=== PATIENT | male | born 1950 | race Two or more races ===

== ENCOUNTER 2017-04-29 02:14 | Emergency (ER) | payer BC, OTHER ==
[2017-04-29 02:21] VITALS: BP 125/83
--- NOTE | 2017-04-29 02:42 | EDM.PDOC ---
ED HPI GENERAL MEDICAL PROBLEM - General Chief Complaint: General Stated Complaint: Right knee pain Time Seen by Provider: 04/29/17 02:35 Source of Information: Reports: Patient, Old Records ([facility] EMR. No paper hospital chart available.) History Limitations: Reports: No Limitations - History of Present Illness INITIAL COMMENTS - FREE TEXT/NARRATIVE: The patient drove himself to the emergency room via private automobile for evaluation of refractory and persistent chronic right knee pain after initial Workmen's Compensation injury on 03/07/17. He was apparently evaluated initially by his regular provider, Isatu Preciado PA-C, at the [facility] in [place] with negative x-rays at that time by his history. Note that he did return to work with refractory persistent right knee pain with his normal work activities with no history of reinjury since the above Workmen's Compensation injury. The patient apparently twisted his knee at the time of that injury, however he denies any recent knee effusion, locking, instability, paresthesias, neurological deficits, or other complaints or previous injuries. Symptoms have been refractory to low-dose OTC Aleve therapy with last dose of one tablet taken 2 1/2 hours prior to arrival. He has been noncompliant with his previously prescribed knee brace. No recent history of abdominal pain, heartburn , nausea, diarrhea, melena, gross hematochezia, or any food intolerance, including fatty foods, etc.. The patient also denies any recent fever, cough, wheezing, dyspnea, etc.. The patient did return back to work shortly after the above injury and was off for the last 3 days secondary to the holiday. He had to leave work today secondary to not being able to perform his normal work duties. Onset: Sudden Onset Date: 03/07/17 Duration: Constant Location: Reports: Lower Extremity, Right. Denies: Head, Face, Neck, Chest, Abdomen, Back, Pelvis, Upper Extremity, Left, Upper Extremity, Right, Lower Extremity, Left, Radiates to Quality: Reports: Ache, Same as Previous Episode, Stabbing Severity: Moderate Improves with: Reports: Rest Worsens with: Reports: Movement Context: Reports: Other (As above) Associated Symptoms: Denies: Confusion, Chest Pain, Cough, Diaphoresis, Fever/ Chills, Loss of Appetite, Malaise, Nausea/Vomiting, Shortness of Breath, Syncope , Weakness Treatments ADMIN PROG COORD: Reports: NSAIDS (As above) Right Lower Anterior Knee Pain Score (Numeric/FACES): 6 - Related Data Allergies Allergy/AdvReac Type Severity Reaction Status Date / Time No Known Allergies Allergy Verified 04/29/17 02:16 Home Meds: Home Meds Linaclotide [Linzess] 145 mcg PO BEDTIME 07/07/15 [History] Albuterol [IJD: Ventolin HFA] 1 puff INH .TWICE DAILY PRN #18 gm 09/13/16 [Rx] Past Medical History HEENT History: Reports: Allergic Rhinitis, Impaired Vision, Other (See Below) Other HEENT History: Patient wears glasses Cardiovascular History: Reports: Arrhythmia, Other (See Below) Other Cardiovascular History: Incomplete right bundle branch block Respiratory History: Reports: Bronchitis, Recurrent, COPD, Pulmonary Fibrosis Gastrointestinal History: Reports: Chronic Constipation, Irritable Bowel Syndrome Musculoskeletal History: Reports: Back Pain, Chronic, Fracture, Osteoarthritis, Other (See Below) Other Musculoskeletal History: Tuft fractures of the third right finger and left third finger on 07/07/15 - Infectious Disease History Infectious Disease History: Reports: Chicken Pox, Measles, Mumps, Pertussis ( Whooping Cough), Other (See Below) Social & Family History - Tobacco Use Smoking Status *Q: Former Smoker Years of Tobacco use: 44 Packs/Tins Daily: 1 (Started smoking at age 21 with no use since age 65) Used Tobacco, but Quit: Yes Second Hand Smoke Exposure: No Second Hand Smoke Education Provided: No - Alcohol Use Alcohol Use History: Yes Days Per Week of Alcohol Use: 2 Number of Drinks Per Day: 2 Total Drinks Per Week: 4 Alcohol Use Frequency: Socially - Recreational Drug Use Recreational Drug Use: No Drug Use in Last 12 Months: No - Living Situation & Occupation 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 ED EXAM, GENERAL - Physical Exam Exam: See Below Exam Limited By: No Limitations General Appearance: Alert, WD/WN, No Apparent Distress Head: Atraumatic Neck: Normal Inspection, Supple, Non-Tender, Full Range of Motion. No: Lymphadenopathy (L), Lymphadenopathy (R), Thyromegaly Respiratory/Chest: No Respiratory Distress, Lungs Clear, Normal Breath Sounds, No Accessory Muscle Use, Chest Non-Tender. No: Stridor, Retractions Cardiovascular: Normal Peripheral Pulses, Regular Rate, Rhythm, No Edema, No Gallop, No JVD, No Murmur, No Rub. No: Gallop/S3, Gallop/S4, Friction Rub Peripheral Pulses: 2+: Radial (L), Radial (R), Dorsalis Pedis (L), Dorsalis Pedis (R) GI/Abdominal: Normal Bowel Sounds, Soft, Non-Tender, No Organomegaly, No Distention, No Abnormal Bruit, No Mass, Pelvis Stable. No: Guarding (Male) Exam: Deferred Rectal (Males) Exam: Deferred Back Exam: Normal Inspection, Full Range of Motion. No: CVA Tenderness (L), CVA Tenderness (R), Muscle Spasm Extremities: No Pedal Edema, Normal Capillary Refill, Limited Range of Motion ( Right knee secondary to discomfort). No: Non-Tender (Mild palpation pain over the inferior middle right patellar region with no crepitation, deformity, etc. Negative pivot shift, Susie's, Arsh's tests), Joint Swelling (No right knee effusion noted), Kirt's Sign, Redness Neurological: Alert, Oriented, CN II-XII Intact, Normal Cognition, Normal Gait, No Motor/Sensory Deficits Psychiatric: Normal Affect, Normal Mood Skin Exam: Warm, Dry, Intact, Normal Color, No Rash. No: Diaphoretic, Wound/ Incision Lymphatic: No Adenopathy Course - Vital Signs Last Recorded V/S: Last Vital Signs Temp 36.9 C 04/29/17 02:19 Pulse 82 04/29/17 02:19 Resp 16 04/29/17 02:19 BP 125/83 04/29/17 02:19 Pulse Ox 98 04/29/17 02:19 Vital Signs - 24 hr 04/29/17 02:19 Temperature [ 36.9 C Oral] Pulse, 82 Peripheral [ Pulse Oximetry] Respiratory 16 Rate Blood Pressure 125/83 [Left Upper Arm ] O2 Sat by Pulse 98 Oximetry - Orders/Labs/Meds Labs: None Meds: None - Radiology Interpretation Free Text/Narrative:: None Departure - Departure Time of Disposition: 03:20 Disposition: Home, Self-Care 01 Condition: Fair Clinical Impression: Right knee pain Qualifiers: Chronicity: acute Qualified Code(s): M25.561 - Pain in right knee COPD (chronic obstructive pulmonary disease) Qualifiers: COPD type: emphysema Emphysema type: panlobular Qualified Code(s): J43.1 - Panlobular emphysema Osteoarthritis Qualifiers: Osteoarthritis location: multiple joints Osteoarthritis type: primary Qualified Code(s): M15.0 - Primary generalized (osteo)arthritis Irritable bowel syndrome Qualifiers: Irritable bowel syndrome type: with constipation Qualified Code(s): K58.1 - Irritable bowel syndrome with constipation - Discharge Information Forms: ED Department Discharge Additional Instructions: 1. Follow-up with your regular provider as scheduled later today for reevaluation with consideration of possible referral to an orthopedic surgeon versus MRI of the right knee 2. BenGay or equivalent, heating pad, and/or ice packs as directed. 3. Continue to wear your knee brace as previously directed 4. Work excuse- See Form - Problem List & Annotations (1) Right knee pain SNOMED Code(s): 98506088 Code(s): M25.561 - PAIN IN RIGHT KNEE Status: Acute Priority: High Current Visit: Yes Onset Date: 03/07/17 Annotation/Comment:: Patient has a follow-up appointment already scheduled with his regular provider for later today. Secondary to refractory symptoms he will discuss with her further workup and evaluation, including possible MRI of the right knee, referral to orthopedic surgeon, physical therapy/occupational therapy, etc. Note initial Worker's Compensation injury on 03/07/17 with repeat Workmen's Compensation forms and [employer] work excuse completed. He may not return to work until he is released by either his regular provider or orthopedic surgeon. Secondary to ineffectiveness change from Aleve to ibuprofen and Tylenol as per discharge instructions with additional topical therapy. Compliance with his previous knee brace was strongly encouraged with the patient not having this brace on today. The patient did not wish to have IM Toradol or IM Depo-Medrol therapy. He might benefit from a trigger point injection at the point of maximum tenderness, however. He refuses all injections at this time Qualifiers: Chronicity: acute Qualified Code(s): M25.561 - Pain in right knee (2) Osteoarthritis SNOMED Code(s): 332294032 Code(s): M19.90 - UNSPECIFIED OSTEOARTHRITIS, UNSPECIFIED SITE Status: Chronic Priority: Medium Current Visit: Yes Annotation/Comment:: Otherwise stable by history Qualifiers: Osteoarthritis location: multiple joints Osteoarthritis type: primary Qualified Code(s): M15.0 - Primary generalized (osteo)arthritis (3) COPD (chronic obstructive pulmonary disease) SNOMED Code(s): 83943033 Code(s): J44.9 - CHRONIC OBSTRUCTIVE PULMONARY DISEASE, UNSPECIFIED Status : Chronic Priority: Medium Current Visit: Yes Annotation/Comment:: Stable by history with no recent fever or bronchitic type symptoms Qualifiers: COPD type: emphysema Emphysema type: panlobular Qualified Code(s): J43.1 - Panlobular emphysema (4) Irritable bowel syndrome SNOMED Code(s): 40784882 Code(s): K58.9 - IRRITABLE BOWEL SYNDROME WITHOUT DIARRHEA Status: Chronic Priority: Medium Current Visit: Yes Annotation/Comment:: Stable by history with current medical therapy Qualifiers: Irritable bowel syndrome type: with constipation Qualified Code(s): K58.1 - Irritable bowel syndrome with constipation - Problem List Review Problem List Initiated/Reviewed/Updated: Yes - Assessment/Plan Assessment:: As above Plan: As above. Extensive precautions were given to the patient, who is in agreement with the treatment plan. See Patient Instructions for further treatment and plan.
== END 2017-04-29 03:20 | disposition home or self-care (01) ==
LOC: LL.ED 02:14
DX: M25.561 Pain in right knee (principal); J43.1 Panlobular emphysema; M15.0 Primary generalized (osteo)arthritis; K58.1 Irritable bowel syndrome with constipation; Z79.899 Other long term (current) drug therapy; Z87.891 Personal history of nicotine dependence
CPT/HCPCS: 99283

== ENCOUNTER 2017-08-07 01:39 | Observation (INO) | payer BC, OTHER ==
[2017-08-07] MEDS ORDERED: Aspirin 81 MG Tab.Chew ONE (01:50)
[2017-08-07] MEDS ORDERED: Sodium Chloride 0.9% 10 ML Syringe FLUSH PRN ×2 (01:58→02:18)
--- NOTE | 2017-08-07 02:05 | EDM.PDOC ---
ED HPI GENERAL MEDICAL PROBLEM - General Chief Complaint: Chest Pain Stated Complaint: left sided chest pain Time Seen by Provider: 08/07/17 01:56 Source of Information: Reports: Patient History Limitations: Reports: No Limitations - History of Present Illness INITIAL COMMENTS - FREE TEXT/NARRATIVE: Patient is a 67-year-old gentleman who was brought in by ambulance from work with chief complaint of chest pain pinpointed right above the nipple pain about 1-2 out of 10 patient states that he was a work and since 11:00 PM was concern about this pain ambulance called and brought to the ER for evaluation Onset: Sudden Duration: Hour(s): (3hour), Constant Location: Reports: Chest (Left breast 3 cm above the nipple) Quality: Reports: Dull, Pressure Severity: Moderate Improves with: Reports: None Worsens with: Reports: Movement Context: Reports: Activity Associated Symptoms: Reports: Chest Pain left chest pain Pain Score (Numeric/FACES): 2 - Related Data Allergies Allergy/AdvReac Type Severity Reaction Status Date / Time No Known Allergies Allergy Verified 08/07/17 01:53 Home Meds: Home Meds Linaclotide [Linzess] 145 mcg PO BEDTIME 07/07/15 [History] Fluticasone/Vilanterol [Breo Ellipta 100-25 MCG Inhalation Kit] 1 puff IH DAILY 08/07/17 [History] Past Medical History HEENT History: Reports: Allergic Rhinitis, Impaired Vision, Other (See Below) Other HEENT History: Patient wears glasses Cardiovascular History: Reports: Arrhythmia, Other (See Below) Other Cardiovascular History: Incomplete right bundle branch block Respiratory History: Reports: Bronchitis, Recurrent, COPD, Pulmonary Fibrosis Gastrointestinal History: Reports: Chronic Constipation, Irritable Bowel Syndrome Other Gastrointestinal History: "stomach problems" Musculoskeletal History: Reports: Back Pain, Chronic, Fracture, Osteoarthritis, Other (See Below) Other Musculoskeletal History: Tuft fractures of the third right finger and left third finger on 07/07/15 - Infectious Disease History Infectious Disease History: Reports: Chicken Pox, Measles, Mumps, Pertussis ( Whooping Cough), Other (See Below) Other Infectious Disease History: WHOOPING COUGH Social & Family History - Tobacco Use Smoking Status *Q: Former Smoker Years of Tobacco use: 44 Packs/Tins Daily: 1 Used Tobacco, but Quit: Yes Month Tobacco Last Used: 12 Second Hand Smoke Exposure: No - Caffeine Use Caffeine Use: Reports: Coffee - Alcohol Use Days Per Week of Alcohol Use: 2 Number of Drinks Per Day: 2 Total Drinks Per Week: 4 - Recreational Drug Use Recreational Drug Use: No Drug Use in Last 12 Months: No - Living Situation & Occupation 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[employer], 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) ED ROS GENERAL - Review of Systems Review Of Systems: See Below Constitutional: Reports: No Symptoms HEENT: Reports: No Symptoms Respiratory: Reports: Shortness of Breath Cardiovascular: Reports: Chest Pain Endocrine: Reports: No Symptoms GI/Abdominal: Reports: No Symptoms : Reports: No Symptoms ED EXAM, GENERAL - Physical Exam Exam: See Below Course - Vital Signs Last Recorded V/S: Last Vital Signs Temp 98.4 F 08/07/17 07:14 Pulse 73 08/07/17 07:14 Resp 18 08/07/17 07:14 BP 118/79 08/07/17 07:14 Pulse Ox 93 L 08/07/17 07:14 - Orders/Labs/Meds Orders: Active Orders 24 hr Category Date Time Status Admission Status [Patient Status] [ADT] Routine ADT 08/07/17 02:32 Active Cardiac Education [RC] Click to Edit Care 08/07/17 02:18 Active Cardiac Monitoring [RC] Q2HR Care 08/07/17 02:18 Active EKG Documentation Completion [RC] ASDIRECTED Care 08/07/17 02:03 Active Peripheral IV Care [RC] . DIRECTED Care 08/07/17 02:23 Active Heart Healthy Diet [DIET] Diet 08/07/17 Breakfast Active Chest 1V Frontal [CR] Stat Exams 08/07/17 02:02 Taken TROPONIN I [CHEM] Routine Lab 08/07/17 14:00 Ordered Aspirin Med 08/07/17 08:00 Active 81 mg PO DAILY Sodium Chloride 0.9% [Saline Flush] Med 08/07/17 01:58 Active 10 ml FLUSH ASDIRECTED PRN Sodium Chloride 0.9% [Saline Flush] Med 08/07/17 02:18 Active 10 ml FLUSH ASDIRECTED PRN Peripheral IV Insertion Adult [OM.PC] Routine Oth 08/07/17 02:18 Ordered Saline Lock Insert [OM.PC] Stat Oth 08/07/17 02:02 Ordered Code Status [Resuscitation Status] Stat Resus Stat 08/07/17 02:28 Ordered Medication Orders Aspirin (Aspirin) 81 mg PO DAILY VERÓNICA Last Admin: 08/07/17 07:36 Dose: 81 mg Sodium Chloride (Saline Flush) 10 ml FLUSH ASDIRECTED PRN PRN Reason: Keep Vein Open Sodium Chloride (Saline Flush) 10 ml FLUSH ASDIRECTED PRN PRN Reason: Keep Vein Open Labs: Laboratory Tests 08/07/17 08/07/17 08/07/17 Range/Units 01:50 01:50 01:50 WBC 3.7 L (4.0-10.2) K/uL RBC 4.89 (4.33-5.41) M/uL Hgb 15.5 (13.1-16.8) g/dL Hct 45.3 (39.0-49.0) % MCV 92.6 (84.0-98.0) fL MCH 31.7 (28.2-33.3) pg MCHC 34.2 (31.7-36.0) g/dL RDW 13.7 (11.2-14.1) % Plt Count 150 (150-350) K/uL Neut % (Auto) 44.4 L (45.0-80.0) % Lymph % (Auto) 38.3 (10.0-50.0) % [place] % (Auto) 10.5 (2.0-14.0) % Eos % (Auto) 6.5 H (0.0-5.0) % Baso % (Auto) 0.3 (0.0-2.0) % Neut # (Auto) 1.65 (1.40-7.00) K/uL Lymph # (Auto) 1.42 (0.50-3.50) K/uL [place] # (Auto) 0.39 (0.00-1.00) K/uL Eos # (Auto) 0.24 (0.00-0.50) K/uL Baso # (Auto) 0.01 (0.00-0.20) K/uL Sodium 139 (136-145) mmol/L Potassium 3.8 (3.5-5.1) mmol/L Chloride 103 (98-107) mmol/L Carbon Dioxide 27.5 (21.0-32.0) mmol/L BUN 12 (7-18) mg/dL Creatinine 0.92 (0.51-1.17) mg/dL Est Cr Clr Drug Dosing TNP Estimated GFR (MDRD) > 60 mL/min Glucose 130 H (74-106) mg/dL Calcium 8.9 (8.5-10.1) mg/dL Troponin I 0.000 (0.000-0.056) ng/mL Meds: Medications Generic Name Dose Route Start Last Admin Trade Name Freq PRN Reason Stop Dose Admin Aspirin 81 mg 08/07/17 08:00 08/07/17 07:36 Aspirin PO 81 mg DAILY VERÓNICA Administration Sodium Chloride 10 ml 08/07/17 01:58 Saline Flush FLUSH ASDIRECTED PRN Keep Vein Open Sodium Chloride 10 ml 08/07/17 02:18 Saline Flush FLUSH ASDIRECTED PRN Keep Vein Open Discontinued Medications Generic Name Dose Route Start Last Admin Trade Name Freq PRN Reason Stop Dose Admin Aspirin Confirm 08/07/17 01:50 08/07/17 01:52 Aspirin Administered 08/07/17 01:51 324 mg Dose Administration 324 mg .ROUTE .STK-MED ONE Aspirin 81 mg 08/07/17 02:07 08/07/17 02:22 Aspirin PO 08/07/17 02:08 Not Given ONETIME ONE Departure - Departure Time of Disposition: 03:10 Disposition: Refer to Observation Reason for Transfer *Q: Primary PCI Indicated Clinical Impression: Chest pain - Problem List & Annotations (1) Chest pain SNOMED Code(s): 23765904 Code(s): R07.9 - CHEST PAIN, UNSPECIFIED Status: Acute Current Visit: Yes Qualifiers: Chest pain type: unspecified Qualified Code(s): R07.9 - Chest pain, unspecified - Problem List Review Problem List Initiated/Reviewed/Updated: Yes - My Orders Last 24 Hours: My Active Orders 08/07/17 01:58 Sodium Chloride 0.9% [Saline Flush] 10 ml FLUSH ASDIRECTED PRN 08/07/17 02:02 Chest 1V Frontal [CR] Stat Saline Lock Insert [OM.PC] Stat 08/07/17 02:03 EKG Documentation Completion [RC] ASDIRECTED 08/07/17 02:18 Cardiac Education [RC] Click to Edit Cardiac Monitoring [RC] Q2HR Sodium Chloride 0.9% [Saline Flush] 10 ml FLUSH ASDIRECTED PRN Peripheral IV Insertion Adult [OM.PC] Routine 08/07/17 02:23 Peripheral IV Care [RC] . DIRECTED 08/07/17 02:28 Code Status [Resuscitation Status] Stat 08/07/17 02:32 Admission Status [Patient Status] [ADT] Routine 08/07/17 08:00 Aspirin 81 mg PO DAILY 08/07/17 14:00 TROPONIN I [CHEM] Routine 08/07/17 Breakfast Heart Healthy Diet [DIET] - Assessment/Plan Last 24 Hours: My Active Orders 08/07/17 01:58 Sodium Chloride 0.9% [Saline Flush] 10 ml FLUSH ASDIRECTED PRN 08/07/17 02:02 Chest 1V Frontal [CR] Stat Saline Lock Insert [OM.PC] Stat 08/07/17 02:03 EKG Documentation Completion [RC] ASDIRECTED 08/07/17 02:18 Cardiac Education [RC] Click to Edit Cardiac Monitoring [RC] Q2HR Sodium Chloride 0.9% [Saline Flush] 10 ml FLUSH ASDIRECTED PRN Peripheral IV Insertion Adult [OM.PC] Routine 08/07/17 02:23 Peripheral IV Care [RC] . DIRECTED 08/07/17 02:28 Code Status [Resuscitation Status] Stat 08/07/17 02:32 Admission Status [Patient Status] [ADT] Routine 08/07/17 08:00 Aspirin 81 mg PO DAILY 08/07/17 14:00 TROPONIN I [CHEM] Routine 08/07/17 Breakfast Heart Healthy Diet [DIET] Plan: Patient will be referred to the hospital for observation rule out ME and schedule for stress test after discharge patient will be needing to reduce his workload by 50% until stress test is done and completed
[2017-08-07] MEDS ORDERED: Aspirin 81 MG Tab.Chew PO ONE (02:07)
[2017-08-07 02:09] LABS: CHLORIDE,CL 103 mmol/L (98-107); SODIUM,NA 139 mmol/L (136-145)
[2017-08-07 07:15] VITALS: BP 118/79
[2017-08-07] MEDS ORDERED: Aspirin 81 MG Tab.Chew PO SCH (08:00)
--- NOTE | 2017-08-07 11:10 | PCM.DCSUM1 ---
Discharge Summary - Discharge Data Discharge Date: 08/07/17 Discharge Disposition: Home, Self-Care 01 Condition: Good - Discharge Diagnosis/Problem(s) (1) Chest pain SNOMED Code(s): 59310662 ICD Code: R07.9 - CHEST PAIN, UNSPECIFIED Status: Acute Current Visit: Yes Problem Details: Initial two Troponin draws completely normal. Level at 0.0 Patient only has discomfort when he pushes on left lateral sternal border, and is otherwise symptom free. No SOB. Pain does not radiate anywhere. Movement can make pain a bit worse. He has requested to go home now and not stay until the 3rd Troponin draw. Given the lab results so far, and how easily pain is reproduced with palpation of chest wall, strongly suspect muscular/skeletal cause for pain complaint. Patient is agreeable with us scheduling a stress test next week to more fully rule out cardiac etiology. Qualifiers: Chest pain type: unspecified Qualified Code(s): R07.9 - Chest pain, unspecified (2) Anterior chest wall pain SNOMED Code(s): 181738657 ICD Code: R07.89 - OTHER CHEST PAIN Status: Acute Priority: High Current Visit: Yes Onset Date: ~08/06/17 Problem Details: Anterior chest wall pain, to left side of sternum. No history of trauma or previous similar episodes. Does not radiate. No nausea/GI complaints. No respiratory changes at this time. Worse with palpation. - Patient Summary/Data Complications: None Hospital Course: Patient had two lab draws, 6 hours apart, after being initially evaluated in the ER. Troponins both 0.0 Vital signs stable. Pain resolved except for noted discomfort left lateral sternal border with palpation. If pressure over area is taken away, patient reports he is pain-free. Suspect musculo-skeletal etiology at this time. Patient would like to go home and asks to skip the 3rd Troponin scheduled after lunch. Given his exam, as well as negative labwork so far, it was decided to let him be discharged early. Outpatient orders for stress test to be performed submitted. Patient will hopefully be able to get onto the schedule for next week on . - Patient Instructions Diet: Usual Diet as Tolerated Activity: As Tolerated Driving: May Drive Today Showering/Bathing: May Shower Notify Provider of: Increased Pain Other/Special Instructions: Follow up for stress test as discussed. Follow up with primary clinic for stress test results and further planning as needed. - Discharge Plan Prescriptions/Med Rec: Vitamin D3/Vitamin K2 [D3 + K2 Dots 1,000 Unit] 2 each PO DAILY #60 tab.rapdis Home Medications: Home Meds Linaclotide [Linzess] 145 mcg PO BEDTIME 07/07/15 [History] Fluticasone/Vilanterol [Breo Ellipta 100-25 MCG Inhalation Kit] 1 puff IH DAILY 08/07/17 [History] Vitamin D3/Vitamin K2 [D3 + K2 Dots 1,000 Unit] 2 each PO DAILY #60 tab.rapdis 08/07/17 [Rx] Patient Handouts: Nonspecific Chest Pain, Chest Pain Observation, Costochondritis, [id number] Forms: ED Department Discharge Referrals: PCP,None [Primary Care Provider] - - Discharge Summary/Plan Comment DC Time >30 min.: No - General Info Date of Service: 08/07/17 Subjective Update: Feels good. Pain-free at this time unless he pushes on anterior chest wall to left of sternum. Functional Status: Reports: Pain Controlled, Tolerating Diet, Ambulating, Urinating - Review of Systems General: Reports: No Symptoms HEENT: Reports: No Symptoms Pulmonary: Reports: No Symptoms Cardiovascular: Reports: Other (see above). Denies: Palpitations, Dyspnea on Exertion, Orthopnea, PND, Edema, Lightheadedness Gastrointestinal: Reports: No Symptoms Genitourinary: Reports: No Symptoms Musculoskeletal: Reports: No Symptoms Skin: Reports: No Symptoms Neurological: Reports: No Symptoms Psychiatric: Reports: No Symptoms - Patient Data Vitals - Most Recent: Last Vital Signs Temp 36.9 C 08/07/17 07:14 Pulse 73 08/07/17 07:14 Resp 18 08/07/17 07:14 BP 118/79 08/07/17 07:14 Pulse Ox 93 L 08/07/17 07:14 Weight - Most Recent: 51.392 kg Lab Results - Last 24 hrs: Laboratory Results - last 24 hr 08/07/17 Range/Units 08:10 Troponin I 0.000 (0.000-0.056) ng/mL Med Orders - Current: Current Medications Aspirin (Aspirin) 81 mg PO DAILY VERÓNICA Last Admin: 08/07/17 07:36 Dose: 81 mg Sodium Chloride (Saline Flush) 10 ml FLUSH ASDIRECTED PRN PRN Reason: Keep Vein Open Sodium Chloride (Saline Flush) 10 ml FLUSH ASDIRECTED PRN PRN Reason: Keep Vein Open Discontinued Medications Aspirin (Aspirin) Confirm Administered Dose 324 mg .ROUTE .STK-MED ONE Stop: 08/07/17 01:51 Last Admin: 08/07/17 01:52 Dose: 324 mg Aspirin (Aspirin) 81 mg PO ONETIME ONE Stop: 08/07/17 02:08 Last Admin: 08/07/17 02:22 Dose: Not Given - Exam General: Reports: Alert, Oriented, Cooperative, No Acute Distress HEENT: Reports: Pupils Equal, Pupils Reactive, EOMI, Mucous Membr. Moist/[place] Neck: Reports: Supple Lungs: Reports: Clear to Auscultation, Normal Respiratory Effort Cardiovascular: Reports: Regular Rate, Regular Rhythm GI/Abdominal Exam: Normal Bowel Sounds, Soft, Non-Tender, No Distention, No Mass (Male) Exam: Deferred Rectal (Males) Exam: Deferred Back Exam: Reports: Normal Inspection Extremities: Normal Inspection, Normal Range of Motion, Non-Tender, Normal Capillary Refill Skin: Reports: Warm, Dry, Intact Neurological: Reports: No New Focal Deficit Psy/Mental Status: Reports: Alert, Normal Affect, Normal Mood *Q Meaningful Use (DIS) - VTE *Q VTE Criteria *Q: - Stroke *Q Stroke Criteria *Q: - AMI *Q AMI Criteria *Q:
== END 2017-08-07 11:50 | disposition home or self-care (01) ==
LOC: LL.ED 01:39 → LL.MS 02:44
PROVIDERS: ADMIT Family Medicine; ATTEND Family Medicine
DX: R07.89 Other chest pain (principal); J44.9 Chronic obstructive pulmonary disease, unspecified; K59.09 Other constipation; Z79.899 Other long term (current) drug therapy; Z87.891 Personal history of nicotine dependence
CPT/HCPCS: 36000; 36415; 71010; 80048; 84484; 85025; 93005; 99285; A9270; G0378

== ENCOUNTER 2017-10-10 06:04 | Emergency (ER) | payer BC, OTHER ==
[2017-10-10 06:34] VITALS: BP 144/94
--- NOTE | 2017-10-10 07:02 | EDM.PDOC ---
ED HPI GENERAL MEDICAL PROBLEM - General Chief Complaint: Laceration Stated Complaint: lac to left thumb and ring finger Time Seen by Provider: 10/10/17 06:44 Source of Information: Reports: Patient History Limitations: Reports: No Limitations - History of Present Illness INITIAL COMMENTS - FREE TEXT/NARRATIVE: Patient had left hand injured when a piece of metal fell down upon it. Denies pain, no loss of function. Did sustain two lacerations. One on thumb, and one distally on 4th digit. No numbness. No other injuries. Tetanus is UTD Treatments [employer] ARCHITECT: Reports: Dressing(s) Left Hand Pain Score (Numeric/FACES): 2 - Related Data Allergies Allergy/AdvReac Type Severity Reaction Status Date / Time No Known Allergies Allergy Verified 10/10/17 06:05 Home Meds: Home Meds Linaclotide [Linzess] 145 mcg PO BEDTIME 07/07/15 [History] Montelukast [Singulair] 10 mg PO DAILY 10/10/17 [History] Past Medical History HEENT History: Reports: Allergic Rhinitis, Impaired Vision, Other (See Below) Other HEENT History: Patient wears glasses Cardiovascular History: Reports: Arrhythmia, Other (See Below) Other Cardiovascular History: Incomplete right bundle branch block Respiratory History: Reports: Bronchitis, Recurrent, COPD, Pulmonary Fibrosis Gastrointestinal History: Reports: Chronic Constipation, Irritable Bowel Syndrome Other Gastrointestinal History: "stomach problems" Musculoskeletal History: Reports: Back Pain, Chronic, Fracture, Osteoarthritis, Other (See Below) Other Musculoskeletal History: Tuft fractures of the third right finger and left third finger on 07/07/15 - Infectious Disease History Infectious Disease History: Reports: Chicken Pox, Measles, Mumps, Pertussis ( Whooping Cough), Other (See Below) Other Infectious Disease History: WHOOPING COUGH Social & Family History - Tobacco Use Smoking Status *Q: Never Smoker Years of Tobacco use: 44 Packs/Tins Daily: 1 Used Tobacco, but Quit: Yes Month Tobacco Last Used: 12 Second Hand Smoke Exposure: No - Caffeine Use Caffeine Use: Reports: Coffee - Alcohol Use Days Per Week of Alcohol Use: 2 Number of Drinks Per Day: 2 Total Drinks Per Week: 4 - Recreational Drug Use Recreational Drug Use: No Drug Use in Last 12 Months: No - Living Situation & Occupation 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 ED EXAM, SKIN/RASH Exam: See Below Exam Limited By: No Limitations General Appearance: Alert, WD/WN, No Apparent Distress Eye Exam: Bilateral Eye: EOMI, PERRL Throat/Mouth: Normal Voice, No Airway Compromise Head: Atraumatic, Normocephalic Neck: Supple Respiratory/Chest: No Respiratory Distress Extremities: Normal Capillary Refill, Other (lacerated thumb and 4th finger left hand) Neurological: Alert, Oriented, Normal Cognition, Normal Gait, No Motor/Sensory Deficits Psychiatric: Normal Affect, Normal Mood Skin: Other (lacerations on left hand as described above) Location, Skin: Upper Extremity, Left ED SKIN PROCEDURES - Laceration/Wound Repair Left Medial Finger Lac/Wound length In cm: 1 Appearance: Subcutaneous, Linear, Clean Distal NVT: Neuro & Vascular Intact, No Tendon Injury Anesthetic Type: Local Local Anesthesia - Lidocaine (Xylocaine): 1% Plain Local Anesthetic Volume: 2cc Skin Prep: Providone-Iodine (Betadine) Exploration/Debridement/Repair: Wound Explored, In a Bloodless Field, Explored to Base, No Foreign Material Found Suture Size: 4-0 # of Sutures: 2 Suture Type: Prolene, Interrupted Sterile Dressing Applied: Nurse Tetanus Status Addressed: Yes Complications: No Left Lateral Finger Lac/Wound length In cm: 2.5 (U shaped) Appearance: Subcutaneous Distal NVT: Neuro & Vascular Intact, No Tendon Injury Anesthetic Type: Other (digital and local) Local Anesthesia - Lidocaine (Xylocaine): 1% Plain Local Anesthetic Volume: 5cc Skin Prep: Providone-Iodine (Betadine) Exploration/Debridement/Repair: Wound Explored, Explored to Base, No Foreign Material Found, Multiple Flaps Aligned Closed with: Sutures Suture Size: 4-0 # of Sutures: 4 Suture Type: Prolene, Interrupted Drain Placement: No Sterile Dressing Applied: Nurse Tetanus Status Addressed: Yes Complications: No Course - Vital Signs Last Recorded V/S: Last Vital Signs Temp 37.0 C 10/10/17 06:33 Pulse 89 10/10/17 06:33 Resp 14 10/10/17 06:33 BP 144/94 H 10/10/17 06:33 Pulse Ox 99 10/10/17 06:33 - Orders/Labs/Meds Orders: Active Orders 24 hr Category Date Time Status Fingers Fourth Digit Lt F3 [CR] Stat Exams 10/10/17 06:56 Ordered Meds: Medications Discontinued Medications Generic Name Dose Route Start Last Admin Trade Name Tremayne PRN Reason Stop Dose Admin Lidocaine HCl Confirm 10/10/17 06:50 Xylocaine-Mpf 1% Administered 10/10/17 06:51 Dose 10 ml .ROUTE .STK-MED ONE Neomycin/Polymyxin/Bacitracin Confirm 10/10/17 07:20 Triple Antibiotic Oint Administered 10/10/17 07:21 Dose 1 each .ROUTE .STK-MED ONE - Radiology Interpretation Free Text/Narrative:: No fractures noted on finger xray of 4th digit - Re-Assessments/Exams Free Text/Narrative Re-Assessment/Exam: 10/10/17 07:46 Wounds repaired. 4th finger injury was more like avulsion, with U shaped form. Still attached at some points. Should be viable. Edges tacked down to keep injured portion in place on all sides. Patient warned that some areas may slough off during healing. Wound care discussed. Precautions reviewed. Sutures should be removed in 7-10 days. BP mildly elevated. May be secondary to injury and having to come to the ER. Patient encouraged to have that rechecked routinely to watch for trends. Departure - Departure Time of Disposition: 07:48 Disposition: Home, Self-Care 01 Condition: Good Clinical Impression: Laceration of multiple sites of left hand and fingers Qualifiers: Encounter type: initial encounter Qualified Code(s): S61.412A - Laceration without foreign body of left hand, initial encounter; S61.219A - Laceration without foreign body of unspecified finger without damage to nail, initial encounter; S61.219A - Laceration without foreign body of unspecified finger without damage to nail, initial encounter Clinical Impression: (Ruled Out): Laceration of finger - Discharge Information Instructions: Laceration Care, Adult, [id number] Referrals: PCP,None [Primary Care Provider] - Forms: ED Department Discharge Additional Instructions: Sutures out in 7 to 10 days. No earlier than next Friday. Wound care as discussed. Follow up earlier if you have problems, such as signs of infection. Saline/salt water soaks as discussed to keep areas clean. Keep wounds clean and dry/covered at work. Topical antibiotics ointment several times a day. Have them recheck your blood pressure at your next visit. It was elevated today. However this may in part have been due to the finger injuries that you had today. - My Orders Last 24 Hours: My Active Orders 10/10/17 06:56 Fingers Fourth Digit Lt F3 [CR] Stat - Assessment/Plan Last 24 Hours: My Active Orders 10/10/17 06:56 Fingers Fourth Digit Lt F3 [CR] Stat
[2017-10-10] MEDS ORDERED: Bacitracin/Neomycin/Polymyxin B Oint 0.9 GM U/D Packet ONE (07:20)
== END 2017-10-10 08:00 | disposition home or self-care (01) ==
LOC: LL.ED 06:04
DX: S61.012A Laceration without foreign body of left thumb without damage to nail, initial encounter (principal); S61.215A Laceration without foreign body of left ring finger without damage to nail, initial encounter; Z79.899 Other long term (current) drug therapy; Z87.891 Personal history of nicotine dependence; W20.8XXA Other cause of strike by thrown, projected or falling object, initial encounter
CPT/HCPCS: 12002; 73140-F3; 99283